=== PATIENT | female | born 1975 | race Caucasian/White ===

== ENCOUNTER → 2017-06-17 | Outpatient (CLI) | payer MEDICARE ==
--- NOTE | 2017-06-17 16:50 | MR ---
EXAMINATION TYPE: MR lumbar spine wo con DATE OF EXAM: 06/17/2017 COMPARISON: NONE HISTORY: Low back pain TECHNIQUE: Multiplanar, multisequence images of the lumbar spine were acquired. FINDINGS: The lumbar vertebral bodies maintain normal vertebral body heights and alignment. Bone john ow signal is within normal limits. Conus medullaris is unremarkable terminating at L1. Subcentimeter too small to accurately characterize right lower pole T2 hyperintense renal lesion is incidentally no julio. L1-L2: Normal disc appearance without desiccation. No herniation, protrusion or disc bulging. No ca nal stenosis is present. Foramina are patent bilaterally. L2-L3: Normal disc appearance without desiccation. No herniation, protrusion or disc bulging. No ca nal stenosis is present. Foramina are patent bilaterally. L3-L4: Normal disc appearance without desiccation. No herniation, protrusion or disc bulging. No ca nal stenosis is present. Foramina are patent bilaterally. L4-L5: Small broad-based disc bulge is seen in combination with facet arthropathy with no significant neural foraminal narrowing or spinal canal stenosis. Minimal ligamentum flavum buckling is also iden tified. L5-S1: There is a small central disc herniation/protrusion superimposed upon a broad-based disc bulge with no neural foraminal narrowing or spinal canal stenosis. Mild facet arthropathy and ligamentum f lavum buckling are also seen at this level. IMPRESSION: 1. Small central disc herniation at L5-S1 without spinal canal stenosis or neural foraminal narrowing . 2. Small broad-based disc bulge at L4-L5 without spinal canal stenosis or neural foraminal narrowing. 3. Subcentimeter right renal lesion that is too small to accurately characterize and incidentally see n within the lower pole. Renal ultrasound could be performed for further evaluation.
== END | disposition home or self-care (01) ==
LOC: RADMRIMAIN 08:23
PROVIDERS: ATTEND Internal Medicine
DX: M51.27 Other intervertebral disc displacement, lumbosacral region (principal)
CPT/HCPCS: 72148

== ENCOUNTER → 2017-07-31 | Outpatient (CLI) | payer MEDICARE ==
[2017-07-31 10:02] LABS: HCT 41.5 % (34.0-46.0); HGB 13.8 gm/dL (11.4-16.0); MCH 32.7 pg (25.0-35.0); MCHC 33.4 g/dL (31.0-37.0); MCV 98.1 fL (80.0-100.0); Mean Platelet Volume 7.6; Platelet Count 311 k/uL (150-450); RBC 4.23 m/uL (3.80-5.40); RDW 12.8 % (11.5-15.5); WBC 7.6 k/uL (3.8-10.6)
[2017-07-31 10:15] LABS: ALT 18 U/L (9-52); AST 18 U/L (14-36); Albumin 4.3 g/dL (3.5-5.0); Alkaline Phosphatase 47 U/L (38-126); Anion Gap 11 mmol/L; Blood Urea Nitrogen 12 mg/dL (7-17); Calcium 9.6 mg/dL (8.4-10.2); Carbon Dioxide 25 mmol/L (22-30); Chloride 108 mmol/L (98-107); Glucose 105 mg/dL (74-99); Potassium 4.4 mmol/L (3.5-5.1); Sodium 144 mmol/L (137-145); Total Bilirubin 0.5 mg/dL (0.2-1.3); Total Protein 7.4 g/dL (6.3-8.2)
== END | disposition home or self-care (01) ==
LOC: LABWHC1 09:34
PROVIDERS: ATTEND Psychiatry & Neurology Pain Medicine
DX: H53.9 Unspecified visual disturbance (principal); R51 Headache
CPT/HCPCS: 36415; 80053; 85027

== ENCOUNTER → 2017-08-12 | Outpatient (CLI) | payer MEDICARE ==
--- NOTE | 2017-08-12 09:24 | MR ---
PRE AND POSTCONTRAST ENHANCED MRI OF THE BRAIN: CLINICAL HISTORY: R55 Syncope / R51 Headache CONTRAST: 5.5ML GADAVIST Multiplanar and multispin-echo imaging of the brain was performed both before and after the administr ation of contrast. The ventricles, basal cisterns and sulci overlying the cerebral convexities are within normal limits. There is no evidence for midline shift or mass effect. Acute intracranial hemorrhage or extra-axial collection is not evident. There are no abnormal areas of increased or decreased signal intensity within the brain parenchyma. Following contrast administration, there is no evidence for pathologic enhancement or enhancing mass. The paranasal sinuses and mastoid air cells are well-aerated. 2 incidental small right-sided parotid cysts noted. IMPRESSION: Unremarkable pre and postcontrast enhanced MRI of the brain. EXAMINATION TYPE: MR brain wo/w mraneck wo/wcon DATE OF EXAM: 08/12/2017 8:41 AM COMPARISON: NONE HISTORY: Syncope/Headache Three-dimensional [id number] cervical carotid MRA was performed with multiple intensity projectio n images submitted and source data reviewed at the workstation. Right carotid system: There is no significant plaque seen about the common carotid artery. No evidenc e for plaque or dissection right ICA. No hemodynamically significant stenosis is appreciated. Right external carotid artery right vertebral artery are patent. Left carotid system: No evidence for plaque or dissection left ICA. No hemodynamically significant s tenosis is appreciated. External carotid artery and the left vertebral artery are patent. IMPRESSION: 1. No hemodynamically significant stenosis is appreciated at this time.
== END | disposition home or self-care (01) ==
LOC: RADMRIMAIN 07:24
PROVIDERS: ATTEND Psychiatry & Neurology Neurology
DX: R51 Headache (principal); R55 Syncope and collapse; M54.2 Cervicalgia; M54.5 Low back pain; Z88.0 Allergy status to penicillin; Z88.5 Allergy status to narcotic agent; Z88.6 Allergy status to analgesic agent; Z91.040 Latex allergy status
CPT/HCPCS: 70549; 70553; A9581

== ENCOUNTER → 2017-10-15 | Outpatient (CLI) | payer MEDICARE ==
[2017-10-15 13:38] VITALS: BMI 20.9
== END | disposition home or self-care (01) ==
LOC: MNTWWP 12:57
PROVIDERS: ATTEND Internal Medicine
DX: E16.2 Hypoglycemia, unspecified (principal)
CPT/HCPCS: 97802

== ENCOUNTER → 2018-01-15 | Outpatient (CLI) | payer MEDICARE ==
[2018-01-15 20:03] LABS: Cyclic Citrullinated Pep IgG NEGATIVE (NEGATIVE); DNA Double-Stranded NEGATIVE (NEGATIVE); RNP <0.2 AI; Scleroderma SC-70 Ab <0.2 AI
== END ==
LOC: LABWHC1 11:44
PROVIDERS: ATTEND Psychiatry & Neurology Pain Medicine
DX: M25.50 Pain in unspecified joint (principal)
CPT/HCPCS: 36415; 83516; 85652; 86038; 86140; 86200; 86225; 86235

== ENCOUNTER → 2018-02-12 | Outpatient (CLI) | payer MEDICARE | END | disposition home or self-care (01) | LOC: LABWHC1 11:49 | PROVIDERS: ATTEND Internal Medicine Endocrinology, Diabetes & Metabolism | DX: R73.03 Prediabetes (principal) | CPT/HCPCS: 36415; 82947; 84681 ==

== ENCOUNTER 2018-02-22 15:36 | Emergency (ER) | payer MEDICARE ==
[2018-02-22 16:11] VITALS: TEMP 98.6
[2018-02-22 16:29] LABS: Appearance,Urine Clear (Clear); Bilirubin,Urine Negative (Negative); Blood,Urine Negative (Negative); Color,Urine Light Yellow; Glucose,Urine (UA) Negative (Negative); Ketones,Urine Negative (Negative); Leukocyte Esterase,Urine Negative (Negative); Nitrite,Urine Negative (Negative); PH, Urine 7.5 (5.0-8.0); Protein,Urine Negative (Negative); Specific Gravity,Urine 1.005 (1.001-1.035); Urobilinogen,Urine <2.0 mg/dL (<2.0)
[2018-02-22] MEDS ORDERED: SODIUM CHLORIDE 0.9% 1,000 ML IV ONE (17:12)
[2018-02-22] MEDS ORDERED: ONDANSETRON ODT 4 MG TAB PO STA (17:12)
[2018-02-22 17:45] LABS: Basophils % (A) 0 %; Eosinophils # (A) 0.2 k/uL (0-0.7); Eosinophils % (A) 2 %; HCT 40.4 % (34.0-46.0); HGB 13.7 gm/dL (11.4-16.0); Lymphocytes # (A) 2.6 k/uL (1.0-4.8); Lymphocytes % (A) 24 %; MCH 33.6 pg (25.0-35.0); MCV 98.9 fL (80.0-100.0); Mean Platelet Volume 7.1; Monocytes # (A) 0.5 k/uL (0-1.0); Monocytes % (A) 4 %; Neutrophils # (A) 7.2 k/uL (1.3-7.7); Neutrophils % (A) 67 %; Platelet Count 216 k/uL (150-450); RBC 4.08 m/uL (3.80-5.40); RDW 12.7 % (11.5-15.5); WBC 10.7 k/uL (3.8-10.6)
[2018-02-22 17:58] LABS: ALT 19 U/L (9-52); AST 19 U/L (14-36); Albumin 3.8 g/dL (3.5-5.0); Alkaline Phosphatase 43 U/L (38-126); Anion Gap 8 mmol/L; Blood Urea Nitrogen 11 mg/dL (7-17); Calcium 9.3 mg/dL (8.4-10.2); Carbon Dioxide 24 mmol/L (22-30); Chloride 108 mmol/L (98-107); Glucose 86 mg/dL (74-99); Potassium 3.6 mmol/L (3.5-5.1); Sodium 140 mmol/L (137-145); Total Bilirubin 0.2 mg/dL (0.2-1.3)
[2018-02-22] MEDS ORDERED: KETOROLAC 30 MG/ML 1 ML VIAL IVP STA (18:17)
--- NOTE | 2018-02-22 18:40 | CT ---
EXAMINATION TYPE: CT abdomen pelvis wo con DATE OF EXAM: 02/22/2018 COMPARISON: 02/08/2014 HISTORY: LQ pain w/ nausea & vomiting. Hx pancreatitis, renal stones, IBS. CT DLP: 310 mGycm Automated exposure control for dose reduction was used. TECHNIQUE: Helical acquisition of images was performed from the lung bases through the pelvis. FINDINGS: Lung bases are clear. There is no pleural effusion. Heart size is normal. Liver spleen appear normal. Bile ducts are not dilated. There is no sign of pancreatic mass. Exam is limited by lack of any cont rast. There is no adrenal mass. Kidneys show no hydronephrosis. I see no definite retroperitoneal bay nopathy. There is no ascites. Bladder distends smoothly. I see no pelvic mass. Lumbar spine is intact . Bony pelvis is intact. I see no evidence of mesenteric adenopathy or edema. There is no inguinal he rnia. I see no evidence of free air. IMPRESSION: LIMITED EXAM DUE TO LACK OF CONTRAST. NO SIGN OF ACUTE ABDOMEN AND PELVIS. APPENDIX NOT SEEN. NO EVID ENCE OF RENAL STONE OR OBSTRUCTION.
--- NOTE | 2018-02-22 18:47 | ED ---
General Adult HPI - General Chief complaint: Back Pain/Injury Stated complaint: flank pain Source: patient Mode of arrival: ambulatory Limitations: no limitations - History of Present Illness Initial comments: 42-year-old female patient with a history of renal calculi presents in ED with 3 days of left flank pain. patient states that during this timeframe she has had intermittent nausea, 2 episodes of emesis. Patient denies other complaints including, dysuria, abdominal pain, fever/chills, headache, change in vision, chest pain, shortness of breath. patient states that it feels similar to when she had a kidney stone last time. Patient has not taken anything for the symptoms. Patient elected to be sure that she has not been a kidney stone. Systemic: Pt denies fatigue, myalgia, fever/chills, rash. Pt denies weakness, night sweats, weight loss. Neuro: Pt denies headache, visual disturbances, syncope or pre-syncope. HEENT: Pt denies ocular discharge or irritation, otalgia, rhinorrhea, pharyngitis or notable lymphadenopathy. Cardiopulmonary: Pt denies chest pain, SOB, heart palpitations, dyspnea on exertion. Abdominal/GI: Pt denies abdominal pain. : Pt denies dysuria, burning w/ urination, frequency/urgency. Denies new onset urinary or bowel incontinence. MSK: Pt denies myalgia, loss of strength or function in extremities. - Related Data Previous Rx's Medication Instructions Recorded Ibuprofen [Motrin] 600 mg PO Q6HR PRN #40 day 02/22/18 Allergies Allergy/AdvReac Type Severity Reaction Status Date / Time amoxicillin Allergy Unknown Verified 02/22/18 16:12 codeine Allergy Rash/Hives Verified 02/22/18 16:11 dicyclomine [From Bentyl] Allergy Unknown Verified 02/22/18 16:11 latex Allergy Rash/Hives Verified 02/22/18 16:11 levofloxacin [From Levaquin] Allergy Unknown Verified 02/22/18 16:11 Penicillins Allergy Anaphylaxis Verified 02/22/18 16:11 Review of Systems ROS Statement: Those systems with pertinent positive or pertinent negative responses have been documented in the HPI. ROS Other: All systems not noted in ROS Statement are negative. Past Medical History Past Medical History: Asthma, GERD/Reflux Additional Past Medical History / Comment(s): recent bout of bronchitis. has been having periods of N?V for past 6 months. colitis History of Any Multi-Drug Resistant Organisms: None Reported Past Surgical History: Hysterectomy, Tonsillectomy Additional Past Surgical History / Comment(s): COLONOSCOPY. BILAT-CTR, Past Anesthesia/Blood Transfusion Reactions: Motion Sickness, Postoperative Nausea & Vomiting (PONV) Past Psychological History: No Psychological Hx Reported Smoking Status: Current every day smoker Past Alcohol Use History: None Reported Past Drug Use History: None Reported General Exam - General Exam Comments Initial Comments: Constitutional: NAD, AOX3, Pt has pleasant affect. HEENT: NC/AT, trachea midline, neck supple, no lymphadenopathy. Posterior pharynx non erythematous, without exudates. External ears appear normal, without discharge. Mucous membranes moist. Eyes PERRLA, EOM intact. There is no scleral icterus. No pallor noted. Cardiopulmonary: RRR, no murmurs, rubs or gallops, no JVD noted. Lungs CTAB in anterior and posterior aguilar. No peripheral edema. Abdominal exam: Abdomen soft and non-distended. Abdomen non-tender to palpation in all 4 quadrants. no ecchymoses, cullens sign/braun dacosta sign negative. Bowel sounds active in LLQ. No hepatosplenomegaly. positive CVA tenderness left- sided. left flank pain reproducible on palpation. Patient states that this same pain she was previously experiencing. Neuro: CN II-XII grossly intact. Limitations: no limitations Course Vital Signs 02/22/18 02/22/18 16:08 19:52 Temperature 98.6 F Pulse Rate 76 82 Respiratory 18 16 Rate Blood Pressure 104/66 107/70 O2 Sat by Pulse 99 100 Oximetry Medical Decision Making - Medical Decision Making 42-year-old female patient with no pertinent past medical history presents in ED with 3 days of left flank pain. patient states that during this timeframe she has had intermittent nausea, 2 episodes of emesis. Patient denies other complaints including, dysuria, abdominal pain, fever/chills, headache, change in vision, chest pain, shortness of breath. Patient states that she has a history of kidney stones a number of years ago - denies any other chronic medical conditions. physical exam displayed the left flank pain which was reproducible upon palpation. L [employer] tenderness. Abdomen was nontender to palpation, soft. Cardiopulmonary exam was within normal limits. Laboratory investigations were conducted. CBC/CMP were within normal limits. UA did not display acute abnormalities. Noncontrast CT of abdomen/pelvis was done to evaluate for possibility of renal calculi. This did not display any stones or any other abnormality. Patient flank pain likely musculoskeletal in nature. patient to be discharged with a prescription of ibuprofen. Patient to follow up with PCP for continued evaluation 1-2 days. Patient to return to ED if any new signs symptoms develop including chest pain, shortness of breath, abdominal pain , nausea vomiting diarrhea. Case discussed with Dr. Boyce. - Lab Data Result diagrams: 02/22/18 17:26 02/22/18 17:26 Lab Results 02/22/18 02/22/18 02/22/18 Range/Units 16:23 16:23 17:26 WBC 10.7 H (3.8-10.6) k/uL RBC 4.08 (3.80-5.40) m/uL Hgb 13.7 (11.4-16.0) gm/dL Hct 40.4 (34.0-46.0) % MCV 98.9 (80.0-100.0) fL MCH 33.6 (25.0-35.0) pg MCHC 34.0 (31.0-37.0) g/dL RDW 12.7 (11.5-15.5) % Plt Count 216 (150-450) k/uL Neutrophils % 67 % Lymphocytes % 24 % Monocytes % 4 % Eosinophils % 2 % Basophils % 0 % Neutrophils # 7.2 (1.3-7.7) k/uL Lymphocytes # 2.6 (1.0-4.8) k/uL Monocytes # 0.5 (0-1.0) k/uL Eosinophils # 0.2 (0-0.7) k/uL Basophils # 0.0 (0-0.2) k/uL Sodium (137-145) mmol/L Potassium (3.5-5.1) mmol/L Chloride (98-107) mmol/L Carbon Dioxide (22-30) mmol/L Anion Gap mmol/L BUN (7-17) mg/dL Creatinine (0.52-1.04) mg/dL Est GFR (CKD-EPI)AfAm (>60 ml/min/1.73 sqM) Est GFR (CKD-EPI)NonAf (>60 ml/min/1.73 sqM) Glucose (74-99) mg/dL Calcium (8.4-10.2) mg/dL Total Bilirubin (0.2-1.3) mg/dL AST (14-36) U/L ALT (9-52) U/L Alkaline Phosphatase (38-126) U/L Total Protein (6.3-8.2) g/dL Albumin (3.5-5.0) g/dL Urine Color Light Yellow Urine Appearance Clear (Clear) Urine pH 7.5 (5.0-8.0) Ur Specific [place] 1.005 (1.001-1.035) Urine Protein Negative (Negative) Urine Glucose (UA) Negative (Negative) Urine Ketones Negative (Negative) Urine Blood Negative (Negative) Urine Nitrite Negative (Negative) Urine Bilirubin Negative (Negative) Urine Urobilinogen <2.0 (<2.0) mg/dL Ur Leukocyte Esterase Negative (Negative) Urine HCG, Qual Not Detected (Not Detectd) 02/22/18 Range/Units 17:26 WBC (3.8-10.6) k/uL RBC (3.80-5.40) m/uL Hgb (11.4-16.0) gm/dL Hct (34.0-46.0) % MCV (80.0-100.0) fL MCH (25.0-35.0) pg MCHC (31.0-37.0) g/dL RDW (11.5-15.5) % Plt Count (150-450) k/uL Neutrophils % % Lymphocytes % % Monocytes % % Eosinophils % % Basophils % % Neutrophils # (1.3-7.7) k/uL Lymphocytes # (1.0-4.8) k/uL Monocytes # (0-1.0) k/uL Eosinophils # (0-0.7) k/uL Basophils # (0-0.2) k/uL Sodium 140 (137-145) mmol/L Potassium 3.6 (3.5-5.1) mmol/L Chloride 108 H (98-107) mmol/L Carbon Dioxide 24 (22-30) mmol/L Anion Gap 8 mmol/L BUN 11 (7-17) mg/dL Creatinine 0.64 (0.52-1.04) mg/dL Est GFR (CKD-EPI)AfAm >90 (>60 ml/min/1.73 sqM) Est GFR (CKD-EPI)NonAf >90 (>60 ml/min/1.73 sqM) Glucose 86 (74-99) mg/dL Calcium 9.3 (8.4-10.2) mg/dL Total Bilirubin 0.2 (0.2-1.3) mg/dL AST 19 (14-36) U/L ALT 19 (9-52) U/L Alkaline Phosphatase 43 (38-126) U/L Total Protein 7.0 (6.3-8.2) g/dL Albumin 3.8 (3.5-5.0) g/dL Urine Color Urine Appearance (Clear) Urine pH (5.0-8.0) Ur Specific [place] (1.001-1.035) Urine Protein (Negative) Urine Glucose (UA) (Negative) Urine Ketones (Negative) Urine Blood (Negative) Urine Nitrite (Negative) Urine Bilirubin (Negative) Urine Urobilinogen (<2.0) mg/dL Ur Leukocyte Esterase (Negative) Urine HCG, Qual (Not Detectd) Disposition Clinical Impression: Musculoskeletal pain, Flank pain Disposition: HOME SELF-CARE Condition: Good Instructions: Flank Pain (ED) Prescriptions: Ibuprofen [Motrin] 600 mg PO Q6HR PRN #40 day PRN Reason: Pain Is patient prescribed a controlled substance at d/c from ED?: No Referrals: Jumana West MD [Primary Care Provider] - 1-2 days
[2018-02-22 19:52] VITALS: BP 107/70; PULSE 82; RESP 16
== END 2018-02-22 19:50 | disposition home or self-care (01) ==
LOC: EC 15:36
DX: R10.9 Unspecified abdominal pain (principal); R11.2 Nausea with vomiting, unspecified; F17.200 Nicotine dependence, unspecified, uncomplicated; Z88.0 Allergy status to penicillin; Z88.5 Allergy status to narcotic agent; Z88.1 Allergy status to other antibiotic agents; Z88.8 Allergy status to other drugs, medicaments and biological substances; Z91.040 Latex allergy status
CPT/HCPCS: 36415; 80053; 85025; 81003; 81025; 74176; 99284; 96374; 96361; J1885

== ENCOUNTER → 2018-06-15 | Day surgery (SDC) | payer MEDICARE ==
[2018-06-10 15:22] VITALS: BMI 22.6
[~2018-06-15] MED LIST: LACTATED RINGERS 1,000 ML IV SCH; PROPOFOL 10 MG/ML 20 ML VIAL IV ONE
[2018-06-15 07:31] VITALS: RESP 16; TEMP 97.5
[2018-06-15 07:34] LABS: Glucose,Whole Blood 96 mg/dL (75-99)
--- NOTE | 2018-06-15 07:54 | P.GSHP ---
History of Present Illness H&P Date: 06/15/18 Chief Complaint: Epigastric pain, GERD This a 42-year-old female who presents today for EGD. She's had complaints of epigastric pain and GERD. Past Medical History Past Medical History: Asthma, GERD/Reflux Additional Past Medical History / Comment(s): Frequent emesis, and stomach pain, states hypoglycemic, hx of pancreatitis, hx migraines, states has "water in ear" History of Any Multi-Drug Resistant Organisms: None Reported Past Surgical History: Hysterectomy, Tonsillectomy Additional Past Surgical History / Comment(s): COLONOSCOPY. BILAT-CTR, Past Anesthesia/Blood Transfusion Reactions: Motion Sickness, Postoperative Nausea & Vomiting (PONV) Smoking Status: Current every day smoker - Past Family History Mother Family Medical History: No Reported History Medications and Allergies Home Medications Medication Instructions Recorded Confirmed Type Albuterol Inhaler [Ventolin Hfa 1 - 2 puff INHALATION RT-Q6H PRN 06/10/18 06/15/18 History Inhaler] Citalopram Hydrobromide [CeleXA] 20 mg PO DAILY 06/10/18 06/15/18 History Ibuprofen [Motrin] 800 mg PO BID 06/10/18 06/15/18 History Prednisone See Taper 06/10/18 History Topiramate [Topamax] 50 mg PO BID 06/10/18 06/15/18 History Allergies Allergy/AdvReac Type Severity Reaction Status Date / Time amoxicillin Allergy Anaphylaxis Verified 06/15/18 07:19 codeine Allergy Rash/Hives Verified 06/15/18 07:19 dicyclomine [From Bentyl] Allergy BLISTERS Verified 06/15/18 07:19 latex Allergy Rash/Hives Verified 06/15/18 07:19 levofloxacin [From Levaquin] Allergy BLISTERS Verified 06/15/18 07:19 Penicillins Allergy Anaphylaxis Verified 06/15/18 07:19 Surgical - Exam Vital Signs Temp Pulse Resp BP Pulse Ox 97.5 F L 66 16 115/68 97 06/15/18 07:24 06/15/18 07:24 06/15/18 07:24 06/15/18 07:24 06/15/18 07:24 - General well developed, well nourished, no distress - Eyes PERRL - ENT normal pinna - Neck no masses - Respiratory normal expansion - Cardiovascular Rhythm: regular - Abdomen Abdomen: soft, non tender Assessment and Plan Assessment: Epigastric pain, GERD. We'll perform EGD.
--- NOTE | 2018-06-15 08:05 | P.OP ---
Date of Procedure: 06/15/18 Preoperative Diagnosis: Epigastric abdominal pain Postoperative Diagnosis: Antral gastritis Mild esophagitis No evidence of hiatal hernia Procedure(s) Performed: EGD Anesthesia: MAC Surgeon: John Sykes Pathology: other (Antrum, esophagus) Condition: stable Disposition: PACU Description of Procedure: The patient's placed on the endoscopy table in the lateral position. She received IV sedation. The gastroscope was placed oropharynx and passed in the esophagus and into the stomach. Scope then placed through the pylorus. The first and second portion of the duodenum appeared normal. The scope was then brought back into the antrum this is mildly inflamed. A biopsies performed. The scope was unretroflexed and remainder of the stomach appeared normal. There was no significant hiatal hernia. The GE junction was at 40 cm. The distal esophagus appeared minimally inflamed a biopsies performed. The proximal esophagus. Normal. Scope was withdrawn for patient. Due to the patient's epigastric pain complaints she was scheduled for a HIDA scan.
[2018-06-15 08:33] VITALS: BP 115/76; PULSE 67
--- NOTE | 2018-06-15 11:18 | NM ---
EXAMINATION TYPE: NM hepatobiliary w CCK DATE OF EXAM: 06/15/2018 COMPARISON: NONE HISTORY: Pain TECHNIQUE: After the intravenous administration of 5 mCi Tc 99m Mebrofenin hepatobiliary scintigraphy is performed. Immediate images post injection. FINDINGS: There is satisfactory initial accumulation of tracer by the liver. The gallbladder is visualized wit hin 16 minutes. The small bowel activity is noted within 18 minutes. At one hour CCK was administer ed, patient was injected with 1.2 mcg of Kinevac, and gallbladder ejection fraction is calculated at 86 %. IMPRESSION: Elevated gallbladder ejection fraction may reflect hypercontractile state.
== END | disposition home or self-care (01) ==
LOC: ORWHC2ENDO 07:09
PROVIDERS: ATTEND Surgery
DX: K21.0 Gastro-esophageal reflux disease with esophagitis (principal); K29.50 Unspecified chronic gastritis without bleeding; K29.60 Other gastritis without bleeding; F17.200 Nicotine dependence, unspecified, uncomplicated; J45.909 Unspecified asthma, uncomplicated; Z88.0 Allergy status to penicillin; Z88.1 Allergy status to other antibiotic agents; Z79.1 Long term (current) use of non-steroidal anti-inflammatories (NSAID); Z79.899 Other long term (current) drug therapy; Z88.5 Allergy status to narcotic agent; Z91.040 Latex allergy status
CPT/HCPCS: 88305; 78227; 43239; A9537; J2805; J2704

== ENCOUNTER → 2018-07-19 | Outpatient (CLI) | payer MEDICARE ==
[2018-07-19 18:38] LABS: Albumin 4.3 g/dL (3.80-4.90); Albumin/Globulin Ratio 1.79 (1.60-3.17); Calcium 9.2 mg/dL (8.7-10.3); Globulin 2.4 g/dL (1.6-3.3); Potassium 4.2 mmol/L (3.5-5.5); Total Bilirubin 0.3 mg/dL (0.3-1.2); Total Protein 6.7 g/dL (6.2-8.2)
[2018-07-19 20:39] LABS: Parathyroid Hormone Intact 36.7 pg/mL (14.0-72.0)
== END | disposition home or self-care (01) ==
LOC: LABWHC1 11:19
PROVIDERS: ATTEND Internal Medicine Endocrinology, Diabetes & Metabolism
DX: R73.03 Prediabetes (principal); N20.0 Calculus of kidney; R42 Dizziness and giddiness
CPT/HCPCS: 36415; 80053; 82024; 82533; 83970; 84439; 84443

== ENCOUNTER → 2018-08-17 | Outpatient (CLI) | payer MEDICARE ==
--- NOTE | 2018-08-17 12:20 | CT ---
EXAMINATION TYPE: CT abdomen pelvis wo/w con DATE OF EXAM: 08/17/2018 COMPARISON: 02/22/2018 HISTORY: 43-year-old female diarrhea, left renal colic, IBS, hx. renal stones and pancreatitis TECHNIQUE: Contiguous axial scanning of the abdomen and pelvis before and after administration of 100 ml Isovue 300 IV contrast. Delayed images through the kidneys and coronal/sagittal reconstructions performed. CT DLP: 632.8 mGycm Automated exposure control for dose reduction was used. FINDINGS: Heart normal size without pericardial effusion. Lung bases clear without pleural effusion. Liver upper limits of normal in size at 17.8 cm. No focal lesion identified. No biliary ductal dilata tion. Portal venous system appears patent. Cholecystectomy clips. The glands, kidneys, spleen, and pancreas appear within normal limits. Specifically, no nephrolithiasis or hydronephrosis is seen. Symmetric uptake and excretion of contras t from both kidneys No dilated small bowel, free fluid, or free air. Normal appendix. Oral contrast progressed to the descending colon. Scattered bowel stool. No pericolo narendra inflammatory change. No mesenteric or retroperitoneal adenopathy identified. Bladder is urine distended with very mild circumferential wall thickening. Pelvic phleboliths. Uterus appears surgically absent. Left ovary not clearly delineated. Right ovary is seen with a crenulated peripherally enhancing cystic structure measuring 1.8 cm suggestive of a recently ruptured follicle o r corpus luteum. Bones: No osseous destructive process. IMPRESSION: 1. VERY MILD CIRCUMFERENTIAL BLADDER WALL THICKENING. CORRELATE TO EXCLUDE CYSTITIS. 2. NO NEPHROLITHIASIS OR HYDRONEPHROSIS. 3. A 1.8 CM RECENTLY RUPTURED FOLLICLE OR CORPUS LUTEUM OF THE RIGHT OVARY. 4. OTHERWISE, NO ACUTE INFLAMMATORY PROCESS IDENTIFIED IN THE ABDOMEN OR PELVIS TO EXPLAIN THE PATIEN T'S SYMPTOMS.
== END | disposition home or self-care (01) ==
LOC: RADCTMAIN 09:40
PROVIDERS: ATTEND Urology
DX: N32.89 Other specified disorders of bladder (principal); K58.9 Irritable bowel syndrome, unspecified; N23 Unspecified renal colic; Z88.0 Allergy status to penicillin; Z88.8 Allergy status to other drugs, medicaments and biological substances
CPT/HCPCS: 74178; Q9967 ×2

== ENCOUNTER → 2018-10-12 | Outpatient (CLI) | payer BC ==
[2018-10-12 23:40] LABS: Gliadin AB IgA, Unit 1.2 U/mL
== END | disposition home or self-care (01) ==
LOC: LABWHC1 15:12
DX: K58.9 Irritable bowel syndrome, unspecified (principal)
CPT/HCPCS: 36415; 83516; 86140

== ENCOUNTER → 2020-01-11 | Outpatient (CLI) | payer BC ==
--- NOTE | 2020-01-11 11:11 | CT ---
EXAMINATION TYPE: CT abdomen pelvis wo con DATE OF EXAM: 01/11/2020 COMPARISON: Prior CT 08/17/2018 HISTORY: Lt renal Colic CT DLP: 510 mGycm Automated exposure control for dose reduction was used. TECHNIQUE: Helical acquisition of images from the lung bases through the pelvis. FINDINGS: LUNG BASES: No significant abnormality is appreciated. AORTA: No significant abnormality is appreciataed. LIVER/GB: Liver is enlarged, patient is status post cholecystectomy. PANCREAS: No significant abnormality is seen. SPLEEN: No significant abnormality is seen. ADRENALS: No significant abnormality is seen. KIDNEYS: Mild bilateral pelvic caliectasis is again noted, no evident renal calculi. REPRODUCTIVE ORGANS: No significant change is seen, right ovary is present and shows probable associ ated cysts, the largest measuring 3.2 cm, uterus and left ovary not seen. URINARY BLADDER: Mildly thickened wall as on prior exam.. BOWEL: There are some fluid-filled loops of small bowel present.. FREE AIR: No Free Air is visible. ASCITES: None visible. PELVIC ADENOPATHY: None visualized. RETROPERITONEAL ADENOPATHY: No Retroperitoneal Adenopathy visible. OSSEOUS STRUCTURES: No significant abnormality is seen. IMPRESSION: THERE IS NO SIGNIFICANT INTERVAL CHANGE. CORRELATE FOR POSSIBLE CYSTITIS. NO EVIDENT NEPHROLITHIASIS OR URETERAL CALCULUS. POSTOP CHANGES. RIGHT OVARIAN CYSTIC LESIONS0.
== END | disposition home or self-care (01) ==
LOC: RADCTMAIN 08:59
PROVIDERS: ATTEND Urology
DX: N83.201 Unspecified ovarian cyst, right side (principal); Z88.0 Allergy status to penicillin; Z91.040 Latex allergy status
CPT/HCPCS: 74176

== ENCOUNTER 2020-06-11 15:39 | Observation (INO) | payer BC ==
[2020-06-11] MEDS ORDERED: NALOXONE 0.4 MG/ML 1 ML VIAL IV PRN (16:03)
--- NOTE | 2020-06-11 16:10 | ED ---
General Adult HPI - General Chief complaint: Abdominal Pain Stated complaint: abd pain Time Seen by Provider: 06/11/20 15:42 Source: patient, EMS, RN notes reviewed, old records reviewed Mode of arrival: EMS Limitations: no limitations - History of Present Illness Initial comments: 44-year-old female presenting as a transfer from outside hospital for evaluation of intractable nausea vomiting, abdominal pain. She was sent to this institution for consultation with gastroenterology. She had multiple ER visits and symptoms persisted. She did have laboratory testing, ultrasound, and CT abdomen and pelvis prior to transfer. There was no significant abnormalities noted to account for her symptoms. She's had generalized abdominal pain, with nausea vomiting for the past several days. No fever. She denies diarrhea. States she has been somewhat constipated. She has a history of IBS. - Related Data Home Medications Medication Instructions Recorded Confirmed Albuterol Inhaler (Mhu) [Ventolin 1 - 2 puff INHALATION RT-Q6H PRN 06/10/18 06/22/18 Hfa Inhaler] Citalopram Hydrobromide [CeleXA] 20 mg PO DAILY 06/10/18 06/22/18 Ibuprofen [Motrin] 800 mg PO BID 06/10/18 06/18/18 Topiramate [Topamax] 50 mg PO BID 06/10/18 06/22/18 Previous Rx's Medication Instructions Recorded Docusate [Colace] 100 mg PO BID #20 capsule 06/22/18 HYDROcodone/APAP 7.5-325MG [[place] 1 tab PO Q6HR PRN 3 Days #10 tab 06/22/18 7.5-325] Allergies Allergy/AdvReac Type Severity Reaction Status Date / Time amoxicillin Allergy Anaphylaxis Verified 06/11/20 15:45 codeine Allergy Rash/Hives Verified 06/11/20 15:45 dicyclomine [From Bentyl] Allergy BLISTERS Verified 06/11/20 15:45 latex Allergy Rash/Hives Verified 06/11/20 15:45 levofloxacin [From Levaquin] Allergy BLISTERS Verified 06/11/20 15:45 Penicillins Allergy Anaphylaxis Verified 06/11/20 15:45 shellfish derived [Shellfish] Allergy Anaphylaxis Verified 06/11/20 15:46 Review of Systems ROS Statement: Those systems with pertinent positive or pertinent negative responses have been documented in the HPI. ROS Other: All systems not noted in ROS Statement are negative. Past Medical History Past Medical History: Asthma, GERD/Reflux Additional Past Medical History / Comment(s): Frequent emesis, and stomach pain, states hypoglycemic, hx of pancreatitis, hx migraines, History of Any Multi-Drug Resistant Organisms: None Reported Past Surgical History: Hysterectomy, Tonsillectomy Additional Past Surgical History / Comment(s): COLONOSCOPY. BILAT-CTR,. EGD- 06/15/18 Past Anesthesia/Blood Transfusion Reactions: Motion Sickness, Postoperative Nausea & Vomiting (PONV) Past Psychological History: Anxiety Smoking Status: Current every day smoker Past Alcohol Use History: None Reported Past Drug Use History: Marijuana - Past Family History Mother Family Medical History: No Reported History General Exam Limitations: no limitations General appearance: alert, in no apparent distress Head exam: Present: atraumatic, normocephalic Eye exam: Present: normal appearance, PERRL ENT exam: Present: mucous membranes dry Neck exam: Present: normal inspection. Absent: tenderness, meningismus Respiratory exam: Present: normal lung sounds bilaterally. Absent: respiratory distress, wheezes Cardiovascular Exam: Present: normal rhythm, bradycardia GI/Abdominal exam: Present: soft, tenderness. Absent: distended, guarding, rebound Extremities exam: Present: normal inspection, normal capillary refill. Absent: pedal edema Neurological exam: Present: alert, oriented X3 Psychiatric exam: Present: normal affect, normal mood Skin exam: Present: warm, dry, intact. Absent: cyanosis, diaphoretic Course Vital Signs 06/11/20 15:41 Temperature 98.5 F Pulse Rate 49 L Respiratory 16 Rate Blood Pressure 117/82 O2 Sat by Pulse 96 Oximetry Medical Decision Making - Medical Decision Making CT images are being uploaded. Laboratory testing did reveal a normal white blood cell count, stable hemoglobin, creatinine was 0.7. Potassium 3.3. Urinalysis showed 2+ ketones. She is continued on IV hydration, symptomatic treatment for both pain and nausea. She has been admitted to Dr. Marcos who is aware with GI on consult. Disposition Clinical Impression: Abdominal pain, Intractable nausea and vomiting Disposition: ADMITTED IP TO THIS [facility] Condition: Stable Is patient prescribed a controlled substance at d/c from ED?: No Referrals: Jumana West MD [Primary Care Provider] - 1-2 days Decision to Admit Reason: Admit from EC Decision Date: 06/11/20 Decision Time: 16:10
[2020-06-11] MEDS: SODIUM CHLORIDE 0.9% 1,000 ML IV SCH (16:32)
[2020-06-11] MEDS: HYDROmorphone 0.5 MG/0.5 ML SYRINGE IVP PRN (16:33)
[2020-06-11] MEDS: ONDANSETRON 4 MG/2 ML VIAL IVP PRN (16:34)
[2020-06-11] MEDS ORDERED: TEMAZEPAM 15 MG CAP PO PRN (19:16)
[2020-06-11] MEDS ORDERED: ALPRAZolam 0.25 MG TAB PO PRN (19:16)
--- NOTE | 2020-06-11 20:00 | HP ---
HISTORY AND PHYSICAL DATE OF SERVICE: 06/11/2020 CHIEF COMPLAINT: Abdominal pain. HISTORY OF PRESENT ILLNESS: This 44-year-old woman with a past medical history of multiple medical problems including asthma, GERD, and emesis, stomach pain, hysterectomy being followed by Dr. West in the outpatient setting, had previously cholecystectomy by Dr. Sykes. The patient is complaining of upper abdominal pain as well as vomiting for the past several days. Patient went to [facility]. CT scan did not show acute abnormality. Patient had multiple ER visits and the patient was referred to [facility] for further evaluation and treatment. There is no history of fever, rigors or chills. No history of headache, loss of consciousness or seizures. PAST MEDICAL HISTORY: Asthma, GERD, stomach pain, history of hypoglycemia, hysterectomy. MEDICATIONS: Oxycodone, Celexa and Topamax. ALLERGIES: AMOXICILLIN, CODEINE, BENTYL, LATEX, LEVAQUIN, PENICILLIN, SHELLFISH. FAMILY HISTORY: No history of heart disease or strokes in the family. SOCIAL HISTORY: History of smoking, continued ongoing. No alcohol intake. Occasional THC. REVIEW OF SYSTEMS: ENT: No diminished hearing. No diminished vision. CARDIOVASCULAR: No angina. RESPIRATION: No cough or hemoptysis. GI mentioned earlier. no dysuria. NERVOUS SYSTEM: No numbness or weakness. ALLERGY/IMMUNOLOGY: No asthma, hayfever. MUSCULOSKELETAL: As mentioned earlier. HEMATOLOGY/ONCOLOGY: No history of anemia. ENDOCRINE: No history of diabetes or hypothyroidism. CONSTITUTIONAL: As mentioned earlier. DERMATOLOGY: Negative. RHEUMATOLOGY: Negative. PSYCHIATRY: As mentioned earlier. PHYSICAL EXAMINATION: Alert and oriented times three. Pulse 57, blood pressure 127/70, respirations 16, temperature 98 degrees, pulse ox 97% on room air. HEENT: Conjunctivae Normal. NECK: No JVD. CARDIOVASCULAR: S1, S2. RESPIRATORY: Breath sounds diminished in the bases. No rhonchi. No crackles. ABDOMEN: Soft, mild diffuse discomfort. No guarding. No rigidity. No mass palpable. LEGS: No edema. No swelling. NERVOUS SYSTEM: Higher functions as mentioned. Moves all four limbs. No focal motor or sensory deficits. LYMPHATICS: No lymph nodes palpable in the neck, axilla or groin. SKIN: No ulcer, no rash and no bleeding. JOINTS: No active deforming arthropathy. LABS: Covid 19 is negative. ASSESSMENT: 1. Intractable nausea and vomiting, abdominal pain for evaluation, possible acute gastritis, rule out peptic ulcer disease. 2. Sinus bradycardia. 3. History of asthma. 4. History of gastroesophageal reflux disease. 5. History of stomach pain. 6. History of hypoglycemia. 7. History of pancreatitis. 8. History of migraines. 9. History of hysterectomy. 10.History of tonsillectomy. 11.History of colonoscopy. 12.History of anxiety. 13.History of nicotine dependence. 14.Mild protein calorie malnutrition with body mass index of 19.9. 15.FULL CODE. RECOMMENDATIONS AND DISCUSSION: In this 44-year-old woman who presented with multiple complex medical issues, I would recommend continue the current medications, symptomatic treatment. Gastroenterology consultation for possible endoscopy and biopsy. Otherwise symptomatic treatment will be provided. Clear liquid diet. Prognosis guarded because of multiple complex medical issues. Further recommendations to follow. A copy of dictation being forwarded to Dr. West who is the primary physician. MMSUZETTE / CATHYN: [id number] / DAVID
[2020-06-11] MEDS: NICOTINE 14MG/24HR PATCH TRANSDERM SCH (21:12)
[2020-06-11] MEDS: HEPARIN SODIUM,PORCINE 5,000 UNIT/ML 1 ML VIAL SQ SCH (21:12)
[2020-06-11] MEDS: PANTOPRAZOLE 40 MG/10 ML VIAL IVP SCH (21:12)
[2020-06-11] MEDS: TOPIRAMATE 25 MG TAB PO SCH (21:13)
[2020-06-12 03:41] LABS: Appearance,Urine Clear (Clear); Bilirubin,Urine Negative (Negative); Blood,Urine Negative (Negative); Color,Urine Yellow; Glucose,Urine (UA) Negative (Negative); Hyaline Casts,Urine 3 /lpf (0-2); Ketones,Urine 1+ (Negative); Leukocyte Esterase,Urine Small (Negative); Mucus,Urine Many /hpf; Nitrite,Urine Negative (Negative); Protein,Urine Trace (Negative); RBC,Urine <1 /hpf (0-5); Specific Gravity,Urine 1.027 (1.001-1.035); Squamous Epithelial Cell,Urine 1 /hpf (0-4); WBC,Urine 7 /hpf (0-5)
[2020-06-12 04:07] LABS: Amphetamine Screen,Urine Not Detected (NotDetected); Barbiturate Screen,Urine Not Detected (NotDetected); Benzodiazepines Screen,Urine Not Detected (NotDetected); Cocaine Screen,Urine Not Detected (NotDetected); Methadone Screen, Urine Not Detected (NotDetected); Opiate Screen,Urine Detected (NotDetected); Oxycodone Screen, Urine Not Detected (NotDetected); Phencyclidine Screen,Urine Not Detected (NotDetected); Tricyclic Antidepressant,Urine Not Detected (NotDetected); Urn Cannabinoid Scrn Detected (NotDetected)
[2020-06-12] MEDS: ONDANSETRON 4 MG/2 ML VIAL IVP PRN ×2 (05:33→11:59)
[2020-06-12] MEDS: SODIUM CHLORIDE 0.9% 1,000 ML IV SCH ×2 (05:34→20:23)
[2020-06-12] MEDS: CITALOPRAM HYDROBROMIDE 20 MG TAB PO SCH (08:18)
[2020-06-12] MEDS: HEPARIN SODIUM,PORCINE 5,000 UNIT/ML 1 ML VIAL SQ SCH ×2 (08:18→20:23)
[2020-06-12] MEDS: NICOTINE 14MG/24HR PATCH TRANSDERM SCH (08:18)
[2020-06-12] MEDS: PANTOPRAZOLE 40 MG/10 ML VIAL IVP SCH ×2 (08:18→20:23)
[2020-06-12] MEDS: TOPIRAMATE 25 MG TAB PO SCH ×2 (08:19→20:23)
[2020-06-12 08:30] LABS: Basophils # (A) 0.07 X 10*3/uL (0.00-0.10); Basophils % (A) 0.9 %; Eosinophils # (A) 0.14 X 10*3/uL (0.04-0.35); Eosinophils % (A) 1.8 %; HCT 40.3 % (37.2-46.3); HGB 13.5 g/dL (12.0-15.0); Lymphocytes # (A) 3.48 X 10*3/uL (0.90-5.00); Lymphocytes % (A) 44.4 %; MCH 32.5 pg (27.0-32.0); MCHC 33.5 g/dL (32.0-37.0); MCV 96.9 fL (80.0-97.0); Monocytes # (A) 0.58 X 10*3/uL (0.20-1.00); Monocytes % (A) 7.4 %; Neutrophils # (A) 3.56 X 10*3/uL (1.80-7.70); Neutrophils % (A) 45.4 %; Platelet Count 198 X 10*3/uL (140-440); RBC 4.16 X 10*6/uL (4.10-5.20); RDW 11.9 % (11.5-14.5); WBC 7.84 X 10*3/uL (4.50-10.00)
[2020-06-12 09:16] LABS: INR 1.08 (0.90-1.11); Prothrombin Time 11.7 sec (9.9-11.9)
[2020-06-12] MEDS: TRIMETHOBENZAMIDE 300 MG CAP PO SCH ×3 (10:11→20:23)
[2020-06-12] MEDS: HYDROmorphone 0.5 MG/0.5 ML SYRINGE IVP PRN ×3 (11:09→19:00)
[2020-06-12 12:12] LABS: ALT 17 U/L (4-34); AST 26 U/L (14-36); African American GFR (CKD) >90 (>60 ml/min/1.73 sqM); Albumin 3.8 g/dL (3.5-5.0); Albumin/Globulin Ratio 1.3; Alkaline Phosphatase 49 U/L (38-126); Anion Gap 7 mmol/L; Blood Urea Nitrogen 14 mg/dL (7-17); Calcium 9.1 mg/dL (8.4-10.2); Carbon Dioxide 25 mmol/L (22-30); Chloride 105 mmol/L (98-107); Globulin 2.9 g/dL; Glucose 87 mg/dL (74-99); Non-African American GFR(CKD) >90 (>60 ml/min/1.73 sqM); Potassium 3.2 mmol/L (3.5-5.1); Sodium 137 mmol/L (137-145); Total Bilirubin 0.9 mg/dL (0.2-1.3); Total Protein 6.7 g/dL (6.3-8.2)
--- NOTE | 2020-06-12 12:25 | US ---
EXAMINATION TYPE: US liver DATE OF EXAM: 06/12/2020 COMPARISON: CT January 11, 2020 CLINICAL HISTORY: abdominal pain. abd pain for 10yrs with N/V EXAM MEASUREMENTS: Liver Length: 14.2 cm Gallbladder Wall: Surgically absent CBD: 0.4 cm Right Kidney: 11.2 x 4.9 x 3.6 cm Pancreas: wnl Liver: wnl Gallbladder: Surgically absent Evidence for sonographic Zuleta's sign: no CBD: wnl Right Kidney: wnl Visualized pancreas and liver are unremarkable. No right-sided hydronephrosis. No biliary dilatation. Gallbladder surgically absent. IMPRESSION: Unremarkable study.
[2020-06-12 12:46] LABS: African American GFR (CKD) 102.5 (60.0-200.0); Albumin 3.7 g/dL (3.80-4.90); Albumin/Globulin Ratio 1.68 (1.60-3.17); Anion Gap 4.9 mmol/L (4.00-12.00); Calcium 9.1 mg/dL (8.7-10.3); Carbon Dioxide 30.1 mmol/L (21.6-31.8); Globulin 2.2 g/dL (1.6-3.3); Magnesium 1.6 mg/dL (1.5-2.4); Non-African American GFR(CKD) 88.4 (60.0-200.0); Potassium 3.5 mmol/L (3.5-5.5); Total Bilirubin 0.7 mg/dL (0.3-1.2); Total Protein 5.9 g/dL (6.2-8.2)
--- NOTE | 2020-06-12 16:19 | PN ---
PROGRESS NOTE DATE OF SERVICE: 06/12/2020 This 44-year-old woman who was admitted with intractable nausea and vomiting is evaluated for possible gastritis. The patient is also complaining of right upper quadrant abdominal pain. Dr. Richter's evaluation is in progress. The LFTs showed normal liver enzymes. THC is positive in the drug screen. The patient possibly has mild UTI. There is mild pyuria. No chest pain. No palpitations. No fever. PHYSICAL EXAMINATION: Alert and oriented x3. Pulse is 55, blood pressure 190/85, respiration 20, temperature 98, degrees pulse ox 100% on room air. HEENT: Conjunctivae normal. NECK: No jugular venous distention. CARDIOVASCULAR SYSTEM: S1, S2 muffled. RESPIRATORY SYSTEM: Breath sounds diminished at the bases. No rhonchi. No crackles. ABDOMEN: Soft. Mild diffuse tenderness in the right upper quadrant. LEGS: No edema. No swelling. NERVOUS SYSTEM: No focal deficit. LABS: Reviewed. ASSESSMENT: 1. Intractable nausea, vomiting and abdominal pain for evaluation, possible acute gastritis. Rule out peptic ulcer disease. 2. Sinus bradycardia. 3. History of asthma. 4. Gastroesophageal reflux disease. 5. Next GERD next history of back pain. 6. History of stomach pain. 7. History of hypoglycemia. 8. History of pancreatitis. 9. History of migraines. 10.History of hysterectomy. 11.History of tonsillectomy. 12.History of colonoscopy. 13.History of anxiety. 14.History of nicotine dependence. 15.Mild protein-calorie malnutrition with body mass index 19.9. 16.FULL CODE. RECOMMENDATIONS AND DISCUSSION: I recommend to continue current medications, continue with the monitoring, symptomatic treatment. Amylase and lipase are normal. The patient also had a liver ultrasound today which is unremarkable. I would also recommend continued followup and evaluation by Dr. Richter and possible endoscopies. Guarded prognosis. Further recommendations to follow. MMODL / IJN: [id number] /
[2020-06-12] MEDS ORDERED: METOCLOPRAMIDE 5 MG/ML 2 ML VIAL IVP STA (18:22)
[2020-06-13] MEDS: ONDANSETRON 4 MG/2 ML VIAL IVP PRN ×2 (00:27→13:11)
[2020-06-13] MEDS: HYDROmorphone 0.5 MG/0.5 ML SYRINGE IVP PRN ×3 (00:27→15:09)
[2020-06-13] MEDS: SODIUM CHLORIDE 0.9% 1,000 ML IV SCH ×2 (07:29→19:26)
[2020-06-13] MEDS: TRIMETHOBENZAMIDE 300 MG CAP PO SCH ×3 (08:55→19:25)
[2020-06-13] MEDS: HEPARIN SODIUM,PORCINE 5,000 UNIT/ML 1 ML VIAL SQ SCH ×2 (08:55→19:24)
[2020-06-13] MEDS: PANTOPRAZOLE 40 MG/10 ML VIAL IVP SCH ×2 (08:55→19:24)
[2020-06-13] MEDS: CITALOPRAM HYDROBROMIDE 20 MG TAB PO SCH (08:55)
[2020-06-13] MEDS: TOPIRAMATE 25 MG TAB PO SCH ×2 (08:56→19:25)
[2020-06-13] MEDS: NICOTINE 14MG/24HR PATCH TRANSDERM SCH (09:03)
[2020-06-13] MEDS ORDERED: POTASSIUM CHLORIDE ER 20 MEQ TAB.ER PO STA ×2 (09:26→10:16)
[2020-06-13 10:05] LABS: African American GFR (CKD) >90 (>60 ml/min/1.73 sqM); Anion Gap 7 mmol/L; Blood Urea Nitrogen 12 mg/dL (7-17); Calcium 8.8 mg/dL (8.4-10.2); Carbon Dioxide 27 mmol/L (22-30); Chloride 103 mmol/L (98-107); Glucose 82 mg/dL (74-99); Non-African American GFR(CKD) >90 (>60 ml/min/1.73 sqM); Sodium 137 mmol/L (137-145)
--- NOTE | 2020-06-13 13:24 | P.CONS ---
History of Present Illness - Reason for Consult Consult date: 06/12/20 Nausea and vomiting Requesting physician: Inge Saha - Chief Complaint Nausea and vomiting, epigastric pain - History of Present Illness 44-year-old female with multiple medical comorbidities including history of pancreatitis, prior cholecystectomy, history of irritable bowel syndrome and episodes of nausea and vomiting in the past who presented back to the hospital as a transfer from [facility] where she had been seen for nausea and vomiting and epigastric pain. She reported pain and symptoms of started last . She reports several episodes of vomiting per day. Last bowel movement was on soft in consistency with no blood reported. She does report a history of constipation. She reports sharp stable epigastric pain. Patient has had long-standing history of similar complaints and follows up in the GI clinic she has a known history of marijuana use which she reports is a very few days. Previously she has had multiple investigations with endoscopy in 06/13/2014 with the GI service at which time EGD was significant for small hiatal hernia as well as mild gastritis and duodenitis and a normal colonoscopy. She underwent EGD with the surgical service in 06/2018 with findings of antral gastritis and mild esophagitis. She underwent cholecystectomy for cholecystitis in 06/2018. She had been tried on multiple medications in the past but reports she is unable to take them due to side effects including both mental and Levsin. She'll take Zofran for nausea and had a normal computed tomography scan of the abdomen prior to transfer with a pelvic ultrasound showing a right ovarian cyst. Review of Systems REVIEW OF SYSTEMS: CONSTITUTIONAL: Denies any fevers, chills, or fatigue but has had some weight loss due to her nausea and vomiting. CARDIOVASCULAR: Denies any chest pain, palpitations high or low blood pressures RESPIRATORY: Denies any shortness of breath, hemoptysis or cough. GENITOURINARY: No dysuria or hematuria. MUSCULOSKELETAL: No weakness reported. SKIN: Denies any new rashes or lesions, jaundice or pallor. PSYCHIATRIC: Denies any depression or anxiety, marijuana abuse. NEUROLOGY: Denies headache, denies any new focal deficits. EARS/NOSE/THROAT: No recent hearing change, congestion, nasal discharge or sore throat. EYES: No pain in eyes, discharge or change in vision. GASTROINTESTINAL: As per HPI. Past Medical History Past Medical History: Asthma, GERD/Reflux Additional Past Medical History / Comment(s): Frequent emesis, and stomach pain, states hypoglycemic, hx of pancreatitis, hx migraines, History of Any Multi-Drug Resistant Organisms: None Reported Past Surgical History: Hysterectomy, Tonsillectomy Additional Past Surgical History / Comment(s): COLONOSCOPY. BILAT-CTR,. EGD- 06/15/18. pericarditis Past Anesthesia/Blood Transfusion Reactions: Motion Sickness, Postoperative Nausea & Vomiting (PONV) Past Psychological History: Anxiety Smoking Status: Current every day smoker Past Alcohol Use History: None Reported Additional Past Alcohol Use History / Comment(s): smokes 1/2 ppd from age 6 Past Drug Use History: Marijuana Additional Drug Use History / Comment(s): instructed to hold 24 hrs prior - Past Family History Mother Family Medical History: No Reported History Medications and Allergies Home Medications Medication Instructions Recorded Confirmed Type Topiramate [Topamax] 50 mg PO BID 06/10/18 06/11/20 History Citalopram Hydrobromide [CeleXA] 40 mg PO DAILY 06/11/20 06/11/20 History oxyCODONE-APAP 5-325MG [Percocet 1 tab PO BID PRN 06/11/20 06/11/20 History 5-325 mg] Allergies Allergy/AdvReac Type Severity Reaction Status Date / Time amoxicillin Allergy Anaphylaxis Verified 06/11/20 16:56 codeine Allergy Rash/Hives Verified 06/11/20 16:56 dicyclomine [From Bentyl] Allergy BLISTERS Verified 06/11/20 16:56 latex Allergy Rash/Hives Verified 06/11/20 16:56 levofloxacin [From Levaquin] Allergy BLISTERS Verified 06/11/20 16:56 Penicillins Allergy Anaphylaxis Verified 06/11/20 16:56 shellfish derived [Shellfish] Allergy Anaphylaxis Verified 06/11/20 16:56 Physical Exam Vitals: Vital Signs Temp Pulse Pulse Resp BP BP Pulse Ox 06/12/20 08:00 56 L 16 06/12/20 07:00 98.1 F 56 L 16 109/56 98 06/12/20 02:00 97.5 F L 73 16 125/75 94 L 06/11/20 19:03 57 L 16 06/11/20 19:02 97.5 F L 57 L 16 164/82 06/11/20 16:45 98.0 F 57 L 16 127/73 97 06/11/20 15:41 98.5 F 49 L 16 117/82 96 Intake and Output 06/11/20 06/12/20 06/12/20 22:59 06:59 14:59 Intake Total 650 Balance 650 Intake: Oral 650 Other: Voiding Method Toilet # Voids 2 1 Weight 48.988 kg On physical examination, patient appears comfortable in no apparent distress. HEAD: Normocephalic, atraumatic. EYES: No scleral icterus. No conjunctival injection. MOUTH: No lesions, tongue midline. NECK: Trachea midline, no gross abnormalities. CHEST: Clear to auscultation with no wheezing or rhonchi appreciated. HEART: Regular rate and rhythm. ABDOMEN: Soft, thin and nontender to palpation. Bowel sounds are positive. No organomegaly. No guarding or rigidity. EXTREMITIES: No pedal edema. SKIN: No rashes, no jaundice. NEUROLOGIC: Alert and oriented x3. No focal deficits. Results CBC & Chem 7: 06/12/20 05:20 06/13/20 09:29 Labs: Abnormal Lab Results - Last 24 Hours (Table) 06/12/20 06/12/20 06/12/20 Range/Units 03:01 03:01 05:20 MCH 32.5 H (27.0-32.0) pg Urine Protein Trace H (Negative) Urine Ketones 1+ H (Negative) Ur Leukocyte Esterase Small H (Negative) Urine WBC 7 H (0-5) /hpf Hyaline Casts 3 H (0-2) /lpf Urine Mucus Many H (None) /hpf Urine Opiates Screen Detected H (NotDetected) U Marijuana (THC) Screen Detected H (NotDetected) CT scan - abdomen: report reviewed (Computed tomography scan of the abdomen prior to transfer was within normal limits.) Assessment and Plan (1) Intractable nausea and vomiting Narrative/Plan: 44-year-old female with multiple medical comorbidities presents to the hospital for intractable nausea and vomiting as a transfer from [facility]. She presented reporting multiple episodes of nausea and vomiting with associated epigastric pain. She is known history of irritable bowel syndrome and follows up with the gastroenterology service in the outpatient setting. Patient uses marijuana regularly and is had similar complaints in the past this was evaluated with EGD and colonoscopy in 06/13/2014 with EGD showing hiatal hernia and mild gastritis and duodenitis with a normal colonoscopy. Repeat EGD in 06/15/2018 with the surgical service showed antral gastritis and mild esophagitis. She is status post cholecystectomy in the past. She has also had an episode of pancreatitis in the past. Computed tomography scan performed prior to transfer to [facility] was within normal limits and pelvic ultrasound showed a right ovarian cyst. Unclear etiology, may be related to cannabinoid hyperemesis syndrome, uncontrolled reflux, irritable bowel syndrome, viral gastroenteritis or other etiology. Current Visit: Yes Status: Acute Code(s): R11.2 - NAUSEA WITH VOMITING, UNSPECIFIED SNOMED Code(s): 401821227 (2) Marijuana abuse Current Visit: Yes Status: Acute Code(s): F12.10 - CANNABIS ABUSE, UNCOMPLICATED SNOMED Code(s): 65223633 (3) Abdominal pain Current Visit: Yes Status: Acute Code(s): R10.9 - UNSPECIFIED ABDOMINAL PAIN SNOMED Code(s): 72291278 (4) Irritable bowel syndrome (IBS) Current Visit: Yes Status: Acute Code(s): K58.9 - IRRITABLE BOWEL SYNDROME WITHOUT DIARRHEA SNOMED Code(s): 08086499 Plan: Supportive care Okay for liquid diet, advance as tolerated Continue Protonix twice daily Continue antiemetic regimen and will add Tigan around the clock for nausea Extensive discussion with the patient regarding the need for complete abstinence from marijuana use as symptoms may be related to cannabinoid hyperemesis syndrome Endoscopic evaluation performed in 2014 in 2018 reviewed, no plan for endoscopy at this time would recommend discharge when medically stable for continued follow-up with the GI service, if symptoms persist we'll reevaluate at that time Thank you for allowing us to participate in the care of the patient
--- NOTE | 2020-06-13 13:52 | P.PN ---
Subjective Progress Note Date: 06/13/20 This is a 44-year-old female who was recently admitted and transferred from [facility] for intractable nausea and vomiting and is being closely monitored for possible gastritis. Patient continues to have abdominal discomfort when passing gas and states she has history of IBS with episodes of constipation as well. Patient Is taking pain medications and does see a paint prep technician outpatient. Patient also does use marijuana daily and has been followed by the GI services outpatient. GI is following and recommending abstaining from THC use and continued with antiemetics. Patient is maintained on Protonix and will continue. Diet is being Advanced and will monitor for tolerance. Potassium was found to be 3.0 and will replace and repeat a.m. labs. Review of systems: Constitutional: No reports of fatigue, fever, or chills Cardiovascular: No reports of chest pain or palpitations Respiratory: No reports of shortness of breath or cough GI: No reports of nausea, vomiting, or diarrhea : No reports of dysuria or retention Neurovascular: No reports of weakness or numbness All medications have been reviewed Objective - Vital Signs Vital signs: Vital Signs Temp 98.2 F 06/13/20 07:27 Pulse 58 L 06/13/20 07:27 Resp 18 06/13/20 07:27 BP 147/82 06/13/20 07:27 Pulse Ox 97 06/13/20 07:27 Intake & Output 06/12/20 06/13/20 06/13/20 18:59 06:59 18:59 Intake Total 625 600 200 Output Total 300 Balance 325 600 200 Intake: Intake, IV Titration 525 600 Amount Sodium Chloride 0.9% 1, 525 600 000 ml @ 75 mls/hr IV . [id number] Rx#:[id number] Oral 100 200 Output: Emesis 300 Other: Voiding Method Toilet Toilet Toilet # Voids 1 2 - Exam Gen: This is a 44 are old female sitting up in bed awake, alert and oriented 3, well-developed, well-nourished. Thin build. HEENT: Head is atraumatic, normocephalic. Pupils equal, round. Sclerae is anicteric. NECK: Supple. No JVD. No lymphadenopathy. No thyromegaly. LUNGS: Clear to auscultation. No wheezes or rhonchi. No intercostal retractions. HEART: Regular rate and rhythm. No murmur. ABDOMEN: Soft. Bowel sounds are present. No masses. No tenderness noted on exam. EXTREMITIES: No pedal edema. No calf tenderness. NEUROLOGICAL: Patient is awake, alert and oriented x3. Cranial nerves 2 through 12 are grossly intact. - Labs CBC & Chem 7: 06/12/20 05:20 06/13/20 09:29 Labs: Abnormal Lab Results - Last 24 Hours (Table) 06/13/20 Range/Units 09:29 Potassium 3.0 L (3.5-5.1) mmol/L Assessment and Plan Assessment: Intractable nausea, vomiting, and abdominal pain for evaluation, possible acute gastritis. Rule out peptic ulcer disease Sinus bradycardia history of asthma, not in acute exacerbation Hyponatremia Gastroesophageal reflux disease History of chronic back pain History of pancreatitis history of migraines History of anxiety Continued ongoing nicotine dependence and THC use Mild protein calorie malnutrition with a BMI of 19.9 Full code Plan: Continue with antibiotics and current medications. Will advance diet and monitor for tolerance. GI following recommending no endoscopic intervention at this time and continue with antiemetics along with Protonix. Patient's potassium was 3.0 today and will be replaced. She is having intermittent abdominal discomfort although denies any vomiting. Patient with intermittent nausea on occasion. Will repeat a.m. labs. Anticipate discharge in 24 hours.
[2020-06-13] MEDS ORDERED: bisacodyL 10 MG SUPP RECTAL STA (15:11)
--- NOTE | 2020-06-13 16:13 | P.PN ---
Subjective Progress Note Date: 06/13/20 Principal diagnosis: intractable nausea and vomiting Patient seen and examined lying in bed. She states she had some nausea this morning did not eat her breakfast. She states her abdominal pain has improved significantly. She has not had a bowel movement yet. Objective - Vital Signs Vital signs: Vital Signs Temp 98.2 F 06/13/20 07:27 Pulse 58 L 06/13/20 07:27 Resp 18 06/13/20 07:27 BP 147/82 06/13/20 07:27 Pulse Ox 97 06/13/20 07:27 Intake & Output 06/12/20 06/13/20 06/13/20 18:59 06:59 18:59 Intake Total 625 600 200 Output Total 300 Balance 325 600 200 Intake: Intake, IV Titration 525 600 Amount Sodium Chloride 0.9% 1, 525 600 000 ml @ 75 mls/hr IV . [id number] [facility] Rx#:[id number] Oral 100 200 Output: Emesis 300 Other: Voiding Method Toilet Toilet Toilet # Voids 1 2 - Exam General appearance: The patient is alert, oriented, appears in no acute distress. HET: Head is normocephalic and atraumatic. Conjunctiva pink. Sclera anicteric. Neck: Supple without lymphadenopathy. Abdomen: Soft, nontender, nondistended with bowel sounds. No guarding or rigidity. Extremities: Normal skin color and turgor. No pedal edema Skin: No rashes, no jaundice Neurological: No focal deficits. Alert and oriented 3. - Labs CBC & Chem 7: 06/12/20 05:20 06/13/20 09:29 Labs: Abnormal Lab Results - Last 24 Hours (Table) 06/12/20 06/12/20 06/13/20 Range/Units 05:20 11:47 09:29 Potassium 3.2 L 3.0 L (3.5-5.1) mmol/L Total Protein 5.9 L (6.2-8.2) g/dL Albumin 3.70 L (3.80-4.90) g/dL Assessment and Plan (1) Intractable nausea and vomiting Narrative/Plan: 44-year-old female with multiple medical comorbidities presents to the hospital for intractable nausea and vomiting as a transfer from [facility]. She presented reporting multiple episodes of nausea and vomiting with associated epigastric pain. She is known history of irritable bowel syndrome and follows up with the gastroenterology service in the outpatient setting. Patient uses marijuana regularly and is had similar complaints in the past this was evaluated with EGD and colonoscopy in 06/13/2014 with EGD showing hiatal hernia and mild gastritis and duodenitis with a normal colonoscopy. Repeat EGD in 06/15/2018 with the surgical service showed antral gastritis and mild esophagitis. She is status post cholecystectomy in the past. She has also had an episode of pancreatitis in the past. Computed tomography scan performed prior to transfer to [facility] was within normal limits and pelvic ultrasound showed a right ovarian cyst. Unclear etiology, may be related to cannabinoid hyperemesis syndrome, uncontrolled reflux, irritable bowel syndrome, viral gastroenteritis or other etiology. Current Visit: Yes Status: Acute Code(s): R11.2 - NAUSEA WITH VOMITING, UNSPECIFIED SNOMED Code(s): 278048205 (2) Abdominal pain Current Visit: Yes Status: Acute Code(s): R10.9 - UNSPECIFIED ABDOMINAL PAIN SNOMED Code(s): 79924303 (3) Irritable bowel syndrome (IBS) Current Visit: Yes Status: Acute Code(s): K58.9 - IRRITABLE BOWEL SYNDROME WITHOUT DIARRHEA SNOMED Code(s): 71371579 (4) Marijuana abuse Current Visit: Yes Status: Acute Code(s): F12.10 - CANNABIS ABUSE, UNCOMPLICATED SNOMED Code(s): 00901763 Plan: Supportive care Advance to full liquid diet Dulcolax suppository ordered Continue Protonix twice daily Continue antiemetic regimen and will add Tigan around the clock for nausea Extensive discussion with the patient regarding the need for complete abstinence from marijuana use as symptoms may be related to cannabinoid hyperemesis syndrome Endoscopic evaluation performed in 2014 in 2018 reviewed, no plan for endoscopy at this time would recommend discharge when medically stable for continued follow-up with the GI service, if symptoms persist we'll reevaluate at that time Thank you for allowing us to participate in the care of the patient Dr. Richter I agree with the dictator's note, documented as a scribe by Carissa Crowley.
[2020-06-13] MEDS: SIMETHICONE 80 MG CHEWABLE PO SCH ×2 (19:24→19:26)
[2020-06-14] MEDS: ONDANSETRON 4 MG/2 ML VIAL IVP PRN (04:21)
[2020-06-14] MEDS: HYDROmorphone 0.5 MG/0.5 ML SYRINGE IVP PRN (04:21)
[2020-06-14 07:15] VITALS: BP 138/78; RESP 18; TEMP 97.5
[2020-06-14] MEDS: CITALOPRAM HYDROBROMIDE 20 MG TAB PO SCH (08:19)
[2020-06-14] MEDS: PANTOPRAZOLE 40 MG/10 ML VIAL IVP SCH (08:20)
[2020-06-14] MEDS: SIMETHICONE 80 MG CHEWABLE PO SCH ×2 (08:20→12:33)
[2020-06-14] MEDS: HEPARIN SODIUM,PORCINE 5,000 UNIT/ML 1 ML VIAL SQ SCH (08:20)
[2020-06-14] MEDS: TOPIRAMATE 25 MG TAB PO SCH (08:21)
[2020-06-14] MEDS: TRIMETHOBENZAMIDE 300 MG CAP PO SCH (08:21)
[2020-06-14] MEDS: NICOTINE 14MG/24HR PATCH TRANSDERM SCH (08:27)
--- NOTE | 2020-06-14 08:45 | P.PN ---
Subjective Progress Note Date: 06/14/20 Principal diagnosis: intractable nausea and vomiting As seen and examined sitting up at the bedside chair eating her breakfast. She is tolerating her Sommer quit diet. She denies any nausea or vomiting or abdominal pain at this time. States she is feeling much better. She has an appointment with Tea Calhoun next week. Objective - Vital Signs Vital signs: Vital Signs Temp 97.5 F L 06/14/20 07:13 Pulse 54 L 06/14/20 07:13 Resp 18 06/14/20 07:13 BP 138/78 06/14/20 07:13 Pulse Ox 98 06/14/20 07:13 Intake & Output 06/13/20 06/14/20 06/14/20 18:59 06:59 18:59 Intake Total 660 1200 Balance 660 1200 Intake: Intake, IV Titration 1200 Amount Sodium Chloride 0.9% 1, 1200 000 ml @ 75 mls/hr IV . [id number] [facility] Rx#:[id number] Oral 660 Other: Voiding Method Toilet Toilet # Voids 1 # Bowel Movements 1 - Exam General appearance: The patient is alert, oriented, appears in no acute distress. HET: Head is normocephalic and atraumatic. Conjunctiva pink. Sclera anicteric. Neck: Supple without lymphadenopathy. Abdomen: Soft, nontender, nondistended with bowel sounds. No guarding or rigidity. Extremities: Normal skin color and turgor. No pedal edema Skin: No rashes, no jaundice Neurological: No focal deficits. Alert and oriented 3. - Labs CBC & Chem 7: 06/12/20 05:20 06/13/20 15:52 Labs: Abnormal Lab Results - Last 24 Hours (Table) 06/13/20 Range/Units 09:29 Potassium 3.0 L (3.5-5.1) mmol/L Assessment and Plan (1) Intractable nausea and vomiting Narrative/Plan: 44-year-old female with multiple medical comorbidities presents to the hospital for intractable nausea and vomiting as a transfer from [facility]. She presented reporting multiple episodes of nausea and vomiting with associated epigastric pain. She is known history of irritable bowel syndrome and follows up with the gastroenterology service in the outpatient setting. Patient uses marijuana regularly and is had similar complaints in the past this was evaluated with EGD and colonoscopy in 06/13/2014 with EGD showing hiatal hernia and mild gastritis and duodenitis with a normal colonoscopy. Repeat EGD in 06/15/2018 with the surgical service showed antral gastritis and mild esophagitis. She is status post cholecystectomy in the past. She has also had an episode of pancreatitis in the past. Computed tomography scan performed prior to transfer to [facility] was within normal limits and pelvic ultrasound showed a right ovarian cyst. Unclear etiology, may be related to cannabinoid hyperemesis syndrome, uncontrolled reflux, irritable bowel syndrome, viral gastroenteritis or other etiology. Nausea and vomiting resolved, patient instructed for strict marijuana cessation. Current Visit: Yes Status: Acute Code(s): R11.2 - NAUSEA WITH VOMITING, UNSPECIFIED SNOMED Code(s): 206033815 (2) Abdominal pain Current Visit: Yes Status: Acute Code(s): R10.9 - UNSPECIFIED ABDOMINAL PAIN SNOMED Code(s): 60094959 (3) Irritable bowel syndrome (IBS) Current Visit: Yes Status: Acute Code(s): K58.9 - IRRITABLE BOWEL SYNDROME WITHOUT DIARRHEA SNOMED Code(s): 91560125 (4) Marijuana abuse Current Visit: Yes Status: Acute Code(s): F12.10 - CANNABIS ABUSE, UNCOMPLICATED SNOMED Code(s): 19906252 Plan: Supportive care Continue full liquid diet Dulcolax suppository ordered Continue Protonix twice daily Continue antiemetic regimen and will add Tigan around the clock for nausea Extensive discussion with the patient regarding the need for complete abstinence from marijuana use as symptoms may be related to cannabinoid hyperemesis syndrome Endoscopic evaluation performed in 2014 in 2018 reviewed, no plan for endoscopy at this time would recommend discharge when medically stable for continued follow-up with the GI service, if symptoms persist we'll reevaluate at that time Follow up with Tea Calhoun as scheduled next week Patient may be discharged home from a gastroenterology standpoint Thank you for allowing us to participate in the care of the patient Dr. Richter I agree with the dictator's note, documented as a scribe by Carissa Crowley.
[2020-06-14 10:06] VITALS: PULSE 54
[2020-06-14] MEDS: SODIUM CHLORIDE 0.9% 1,000 ML IV SCH (12:18)
--- NOTE | 2020-06-14 15:57 | P.DS ---
Providers Date of admission: 06/11/20 16:03 Expected date of discharge: 06/14/20 Attending physician: Donna Marcos Consults: 06/11/20 16:04 Consult Physician Routine Consulting Provider: Devonte Richter Consult Reason/Comments: Abdominal pain, intractable nausea vomiting Do you want consulting provider notified?: Yes Primary care physician: Jenna Hunter [facility] Course: Final diagnosis Intractable nausea, vomiting, and abdominal pain for evaluation, possible acute gastritis Sinus bradycardia history of asthma, not in acute exacerbation Hyponatremia Gastroesophageal reflux disease History of chronic back pain History of pancreatitis history of migraines History of anxiety Continued ongoing nicotine dependence and THC use Mild protein calorie malnutrition with a BMI of 19.9 Full code Discharge disposition Patient is being discharged in a stable condition with guarded prognosis to home. Patient will follow-up with Dr. West in the outpatient setting upon discharge. Patient is to follow up with GI in the outpatient setting. Total time taken is greater than 35 minutes. Hospital course This is a 44-year-old female who was recently admitted and transferred from [facility] for intractable nausea and vomiting and is being closely monitored for possible gastritis. Patient continues to have abdominal discomfort when passing gas and states she has history of IBS with episodes of constipation as well. Patient Is taking pain medications and does see a depilatory painter outpatient. Patient also does use marijuana daily and has been followed by the GI services outpatient. GI is following and recommending abstaining from THC use and continued with antiemetics. Patient is maintained on Protonix and will continue. Diet is being Advanced and will monitor for tolerance. Potassium was found to be 3.0 and will replace and repeat a.m. labs. 06/14/2020 Patient is seen and evaluated and follow-up with no acute overnight issues. Patient's abdominal discomfort has improved patient is tolerating diet with no nausea or vomiting noted. Patient did have a bowel movement and states abdominal pain has resolved. Patient is asking to go home. She will follow-up with GI in the outpatient setting. Patient instructed to follow-up with primary care provider upon discharge. Repeat potassium after replacement was 4.0 today. Patient will be discharged home today. On exam vital signs are stable. Cardio S1, S2 are muffled. Respiratory system shows diminished breath sounds at the bases with no wheezing or rhonchi noted. Abdomen is soft and obese, and nontender. Nervous system shows no focal deficits. Please refer to medication reconciliation sheet for a list of medications. Patient Condition at Discharge: Stable Plan - Discharge Summary Discharge Rx Participant: No New Discharge Prescriptions: New Simethicone Chew [Mylicon Chew] 80 mg PO QID #30 chew Famotidine [Pepcid] 20 mg PO BID #60 tablet Trimethobenzamide [Tigan] 300 mg PO TID #21 cap Continue Topiramate [Topamax] 50 mg PO BID Citalopram Hydrobromide [CeleXA] 40 mg PO DAILY oxyCODONE-APAP 5-325MG [Percocet 5-325 mg] 1 tab PO BID PRN PRN Reason: Pain Discharge Medication List Topiramate [Topamax] 50 mg PO BID 06/10/18 [History] Citalopram Hydrobromide [CeleXA] 40 mg PO DAILY 06/11/20 [History] oxyCODONE-APAP 5-325MG [Percocet 5-325 mg] 1 tab PO BID PRN 06/11/20 [History] Famotidine [Pepcid] 20 mg PO BID #60 tablet 06/14/20 [Rx] Simethicone Chew [Mylicon Chew] 80 mg PO QID #30 chew 06/14/20 [Rx] Trimethobenzamide [Tigan] 300 mg PO TID #21 cap 06/14/20 [Rx] Follow up Appointment(s)/Referral(s): Jumana West MD [Primary Care Provider] - 06/18/20 2:40 pm Devonte Richter MD [STAFF PHYSICIAN] - 07/12/20 10:30 am Patient Instructions/Handouts: Irritable Bowel Syndrome (DC), Acute Nausea and Vomiting (DC), Acute Abdominal Pain (DC) Activity/Diet/Wound Care/Special Instructions: Activity Limited until follow-up Follow-up with primary care provider upon discharge follow up GI outpatient as needed Avoid marijuana use Continue current diet and slowly advance as tolerated Discharge Disposition: HOME SELF-CARE
== END 2020-06-14 13:02 | disposition home or self-care (01) ==
LOC: EC 15:39 → 6NMEDSUR 16:03
PROVIDERS: ADMIT Internal Medicine; ATTEND Internal Medicine
DX: R11.2 Nausea with vomiting, unspecified (principal); R10.11 Right upper quadrant pain; R00.1 Bradycardia, unspecified; E87.1 Hypo-osmolality and hyponatremia; K21.9 Gastro-esophageal reflux disease without esophagitis; G89.29 Other chronic pain; F17.200 Nicotine dependence, unspecified, uncomplicated; F41.9 Anxiety disorder, unspecified; F12.10 Cannabis abuse, uncomplicated; E44.1 Mild protein-calorie malnutrition; K58.9 Irritable bowel syndrome, unspecified; R82.81 Pyuria; J45.909 Unspecified asthma, uncomplicated; Z68.1 Body mass index [BMI] 19.9 or less, adult; Z87.19 Personal history of other diseases of the digestive system; Z20.822 Contact with and (suspected) exposure to COVID-19; Z91.040 Latex allergy status; Z90.710 Acquired absence of both cervix and uterus; Z79.899 Other long term (current) drug therapy; Z90.49 Acquired absence of other specified parts of digestive tract; Z88.1 Allergy status to other antibiotic agents; Z88.0 Allergy status to penicillin; Z79.1 Long term (current) use of non-steroidal anti-inflammatories (NSAID); Z86.69 Personal history of other diseases of the nervous system and sense organs
CPT/HCPCS: 96376 ×3; 96361 ×4; 96372 ×3; 96375 ×3; 96374; 99285; 80053; 80048; 85652; 82150; 83690; 83735; 84132; 85025; 85610; 86140; 81001; 80306; 87635; 76705; G0378 ×4; S4990 ×2; J1644 ×4; J2765; J2405 ×4; C9113 ×4; J1170 ×4